=== PATIENT | female | born 1965 | race Caucasian/White ===

== ENCOUNTER 2021-03-03 22:52 | Inpatient (IN) | payer OTHER ==
[~2021-03-03] VITALS: Ht 170.2 cm; Wt 74.8 kg
[2021-03-04] MEDS ORDERED: ONDANSETRON HCL 4MG/2ML INJ IM ONE (00:30)
[2021-03-04] MEDS ORDERED: ACETAMINOPHEN 325MG TABLET PO ONE (00:30)
[2021-03-04] MEDS ORDERED: PHENAZOPYRIDINE HCL 100MG TABLET PO ONE (00:30)
[2021-03-04 00:43] LABS: CHLORIDE 104 mEq/L (98-107)
[2021-03-04 00:52] LABS: BASOPHILS % 0.8 % (0.0-2.0); HEMATOCRIT. 39.6 % (36.0-48.0); HEMOGLOBIN. 13.9 g/dL (12.0-16.0); LYMPHOCYTES % 20.3 % (20.0-50.0); MEAN CORPUSCULAR HEMOGLOBIN 29.1 pg (28.0-32.0); MEAN PLATELET VOLUME 8.4 fl (7.4-10.4); MONOCYTES % 7.7 % (2.0-8.0); NEUTROPHILS % 71.2 % (40.0-76.0); PLATELET 395 x1000/uL (130-400); RED BLOOD CELL COUNT 4.77 mill/uL (4.2-5.4)
[2021-03-04 01:04] LABS: PROTHROMBIN TIME 10.9 sec (9.6-11.0)
[2021-03-04] MEDS ORDERED: CEFTRIAXONE 1 G PREMIX 50 ML IV ONE (02:30)
[2021-03-04] MEDS ORDERED: MORPHINE SULFATE 4 MG/ML CPJ (NOT FOR IM USE) IV ONE (02:30)
[2021-03-04 02:34] LABS: CLARITY URINE CLOUDY (CLEAR); COLOR URINE DARK YELLOW (YELLOW); KETONES URINE 4+ (NEGATIVE); LEUKOCYTE ESTERASE URINE 2+ (NEGATIVE); NITRITE URINE NEGATIVE (NEGATIVE); OCCULT BLOOD URINE NEGATIVE (NEGATIVE); PROTEIN URINE 1+ (NEGATIVE); SPECIFIC GRAVITY URINE 1.031 (1.005-1.030)
[2021-03-04] MEDS ORDERED: ACETAMINOPHEN 325MG TABLET PO PRN ×2 (08:30)
[2021-03-04] MEDS ORDERED: ONDANSETRON HCL 4MG/2ML INJ IV PRN (08:30)
[2021-03-04 09:30] VITALS: BP_SYST 146; BP_SYST 175; BP_DIAS 92; BP_DIAS 94
[2021-03-04 12:00] VITALS: BP 138/91
[2021-03-04] MEDS: CEFTRIAXONE 1,000 MG in DEXTROSE 5% WATER 50 ML IV SCH (12:40)
[2021-03-04 16:00] VITALS: BP 128/95
[2021-03-04 20:00] VITALS: BP 152/96
[2021-03-04] MEDS: FAMOTIDINE 20MG TABLET PO SCH ×2 (21:00→23:17)
[2021-03-05] VITALS: BP 154/100
[2021-03-05] MEDS ORDERED: AMLO5TAB88 PO (01:00)
[2021-03-05 04:00] VITALS: BP 141/76
[2021-03-05 08:20] VITALS: BP 136/86
[2021-03-05] MEDS ORDERED: AMLODIPINE 5MG TABLET PO SCH (09:00)
[2021-03-05] MEDS: CEFTRIAXONE 1,000 MG in DEXTROSE 5% WATER 50 ML IV SCH (09:59)
[2021-03-05 12:00] VITALS: BP 146/103
[2021-03-05] MEDS ORDERED: LEVO500T89 MT (12:23)
[2021-03-05 12:24] VITALS: BP 136/97
== END 2021-03-05 13:14 | disposition home or self-care (01) ==
LOC: ER 22:52 → MICUSO 03-04 05:06 → 6EST 03-04 08:36
PROVIDERS: ADMIT Internal Medicine; ATTEND Internal Medicine
DX: K80.20 Calculus of gallbladder without cholecystitis without obstruction (principal); I10 Essential (primary) hypertension; N39.0 Urinary tract infection, site not specified
CPT/HCPCS: 36415; 74176; 76705; 80053; 81003; 85025; 93005; 99285; J0696; J2270; J2405; J7060

== ENCOUNTER 2024-01-27 23:33 | Emergency (ER) | payer OTHER ==
[~2024-01-27] VITALS: Ht 165.1 cm; Wt 91.0 kg
[~2024-01-27 23:33] MED LIST: AMLO5TAB88 PO; LEVO-65 MT
[2024-01-27 23:41] VITALS: O2SAT 99
[2024-01-28] MEDS: FAMOTIDINE 20MG/2ML VIAL IV ONE
[2024-01-28] MEDS: ONDANSETRON HCL 4MG/2ML INJ IV ONE
[2024-01-28] MEDS: SODIUM CHLORIDE 0.9% 1,000 ML IV ONE
[2024-01-28 00:11] LABS: EOSINOPHILS % 0.6 % (0.0-5.0); HEMATOCRIT. 39.5 % (36.0-48.0); HEMOGLOBIN. 13.3 g/dL (12.0-16.0); LYMPHOCYTES % 24.3 % (20.0-50.0); MEAN CORPUSCULAR HEMOGLOBIN 28.2 pg (28.0-32.0); MEAN CORPUSCULAR HGB CONC 33.8 g/dL (31.0-37.0); MEAN CORPUSCULAR VOLUME 83.4 fL (81.0-99.0); MEAN PLATELET VOLUME 7.9 fl (7.4-10.4); MONOCYTES % 8.9 % (2.0-8.0); NEUTROPHILS % 65.2 % (40.0-76.0); PLATELET 412 x1000/uL (130-400); RED BLOOD CELL COUNT 4.74 mill/uL (4.2-5.4); RED CELL DISTRIBUTION WIDTH 14.8 % (11.6-14.6); WHITE BLOOD COUNT 9.1 x1000/uL (4.5-11.0)
[2024-01-28 00:21] LABS: CARBON DIOXIDE 21 mEq/L (21-32); CHLORIDE 103 mEq/L (98-107); POTASSIUM 3.6 mEq/L (3.5-5.1); SODIUM 135 mEq/L (136-145)
[2024-01-28 00:22] LABS: CALCIUM 9.6 mg/dL (8.7-10.4)
[2024-01-28 00:26] LABS: CREATININE 0.8 mg/dL (0.6-1.0)
[2024-01-28 00:27] LABS: ETHANOL BLOOD 117 mg/dL (<10); GLUCOSE 151 mg/dL (70-105); UREA NITROGEN BLOOD 8 mg/dL (9-23)
[2024-01-28 00:28] LABS: ALANINE AMINOTRANSFERASE 13 IU/L (10-49); ALBUMIN 4.7 g/dL (3.2-4.8); ASPARTATE AMINOTRANSFERASE 21 IU/L (<34)
[2024-01-28 00:29] LABS: BILIRUBIN TOTAL 0.2 mg/dL (0.1-1.0)
[2024-01-28 00:31] LABS: HCG SCREEN NEGATIVE
[2024-01-28 00:33] LABS: BILIRUBIN DIRECT < 0.1 mg/dL (<=3.0)
[2024-01-28 03:27] VITALS: BP 141/94; PULSE 90; RESP 17; TEMP 97.9
== END 2024-01-28 03:27 | disposition home or self-care (01) ==
LOC: ER 23:42
DX: F10.129 Alcohol abuse with intoxication, unspecified (principal); I10 Essential (primary) hypertension; Y90.5 Blood alcohol level of 100-119 mg/100 ml
CPT/HCPCS: 80076; 80048; 80320; 84703; 83690; 85025; 36415; 99284; 96361; 96374; 96375; J3490; J2405; J7030; G0480